=== PATIENT | female | born 1970 | race Caucasian/White ===

== ENCOUNTER 2025-08-03 06:12 | Day surgery (SDC) | payer OTHER, SELFPAY ==
[2025-08-01 15:04] VITALS: BMI 32.3
[2025-08-03] MEDS: LACTATED RINGERS 1,000 ML 42 ML IV (06:49)
[2025-08-03] MEDS: ACETAMINOPHEN 325 MG TABLET 975 MG PO (06:52)
[2025-08-03 06:53] VITALS: BP 137/81; PULSE 85; RESP 15; TEMP 36.4; O2SAT 96; BMI 36.1
--- NOTE | 2025-08-03 07:39 | PM.PREOP ---
Pre-operative Note COVID-19 COVID-19 status: Not tested Interval Note History & Physical reviewed/Exam performed by Physician: Yes Changes to H&P: No ASA Class (for procedural sedation): II
--- NOTE | 2025-08-03 08:13 | SUR.OPER ---
High lithotomy on padded OR bed. The [place] Pad Positioner under torso. Head on pillow, arms secured to armboards <90 degrees, purple strap across shoulders. Legs secured in padded yellow fins stirrups.
[2025-08-03] MEDS: ONABOTULINUMTOXINA 100 UNIT VIAL INJ (08:18)
[2025-08-03 08:28] VITALS: BP 139/85; PULSE 90; RESP 18; TEMP 37; O2SAT 94
--- NOTE | 2025-08-03 08:28 | PM.OP.1 ---
Operative Date/Time/Diagnoses Date of procedure: 08/03/25 Time of procedure: 08:28 Pre-op diagnosis: Anal fissure Post-op diagnosis: same Procedure & Clinicians Procedure: Examination under anesthesia Injection of botulinum toxin Same procedure(s) as scheduled: Yes Surgeon: Donte Rdz Click Yes if Unassisted: Yes Anesthesia Type: General Operative Notes Findings: Large right lateral anal fissure with a sentinel pile Small anterior anal fissure High sphincter tone Applied: none Estimated Blood Loss (mL): 8 Procedure in detail: The patient was brought to the operating room and placed on the table in the supine position. General anesthesia was induced. She was positioned in high lithotomy with legs in stirrups. The perineum was prepped and draped in the usual fashion using Betadine and a time-out was performed. External examination demonstrated a sentinel pile in the right lateral position. There was also evidence of a small anterior midline fissure We started with a digital rectal exam with a well lubricated finger. There was irregularity of the mucosa around the dentate line in the right lateral position. The sphincter tone was higher than normal. Further retraction of the soft tissue revealed a rather large right lateral anal fissure associated with the right lateral sentinel pile. We then injected 40 units of botulinum toxin in the internal sphincter in various locations. We then injected Exparel into the skin and subcutaneous tissue around the two fissures and some into the internal sphincter. EBL: 5 mL Specimen: None Complications: none Post-operative Condition: stable Disposition: PACU
[2025-08-03 08:30] VITALS: BP 143/76; PULSE 88; RESP 18; O2SAT 95
[2025-08-03 08:35] VITALS: BP 145/74; PULSE 87; RESP 20; O2SAT 97
[2025-08-03 08:40] VITALS: BP 119/84; PULSE 79; RESP 23; O2SAT 96
[2025-08-03 08:50] VITALS: BP 127/82; PULSE 78; RESP 24; O2SAT 93
== END 2025-08-03 09:08 | disposition home or self-care (01) ==
PROVIDERS: Referring Provider Surgery; Visit Provider Surgery
PROC: (CPT 45990; principal; 2025-08-03 07:45)
DX: K60.2 Anal fissure, unspecified (principal); F17.210 Nicotine dependence, cigarettes, uncomplicated
CPT/HCPCS: 46505; J0585; J0666; J1100; J1885; J2250; J2405; J2704; J3010